=== PATIENT | female | born 1990 | race Caucasian/White ===

== ENCOUNTER 2019-04-08 11:33 | Inpatient (IN) | payer BC ==
[2019-04-08] VITALS (10 sets, daily range): BP systolic 97–116; BP diastolic 51–68
[~2019-04-08] VITALS: Ht 180.3 cm; Wt 81.2 kg
--- NOTE | 2019-04-08 12:19 | PDOC1 ---
History and Physical Date of Admission Date of Admission DATE: 04/08/19 TIME: 12:18 Identification/Chief Complaint Chief Complaint SEEN IN [facility] ER WITH RLQ ACUTE PAIN, DILATED APPENDIX ON CT [facility] Family History Family History: High Cholestrol Family History: Parent Social History Smoke: No ALCOHOL: none Drugs: None Allergies Allergies: Coded Allergies: No Known Drug Allergies (Unverified , 04/08/19) ROS General: YES: Chills; No: Night Sweats, Fatigue, Malaise, Appetite, Other PSYCHOLOGICAL ROS: No: Anxiety, Behavioral Disorder, Concentration difficultie, Decreased libido, Depression, Disorientation, Hallucinations, Hostility, Irritablity, Memory difficulties, Mood Swings, Obsessive thoughts, Physical abuse, Sexual abuse, Sleep disturbances, Suicidal ideation, Other Eyes: No Blurry vision, No Decreased vision, No Double vision, No Dry eyes, No Excessive tearing, No Eye Pain, No Itchy Eyes, No Loss of vision, No Photophobia, No Scotomata, No Uses contacts, No Uses glasses, No Other HEENT: No: Heacaches, Visual Changes, Hearing change, Nasal congestion, Nasal discharge, Oral lesions, Sinus pain, Sore Throat, Epistaxis, Sneezing, Snoring, Tinnitus, Vertigo, Vocal changes, Other ALLERGY AND IMMUNOLOGY: No: Hives, Insect Bite Sensitivity, Itchy/Watery Eyes, Nasal Congestion, Post Nasal Drip, Seasonal Allergies, Other Hematological and Lymphatic: No: Bleeding Problems, Blood Clots, Blood Transfusions, Brusing, Night Sweats, Pallor, Swollen Lymph Nodes, Other ENDOCRINE: No: Breast Changes, Galactorrhea, Hair Pattern Changes, Hot Flashes, Malaise/lethargy, Mood Swings, Palpitations, Polydipsia/polyuria, Skin Changes, Temperature Intolerance, Unexpected Weight Changes, Other Breast: No New/Changing Breast Lumps, No Nipple changes, No Nipple discharge, No Other Respiratory: No: Cough, Hemoptysis, Orthopnea, Pleuritic Pain, Shortness of breath, SOB with excertion, Sputum Changes, Stridor, Tachypnea, Wheezing, Other Cardiovascular: No Chest Pain, No Palpitations, No Orthopnea, No Paroxysmal Noc. Dyspnea, No Edema, No Lt Headedness, No Other Gastrointestinal: Yes Abdominal Pain, Yes Other (rlq discomfort x 18 hrs) Genitourinary: No Dysuria, No Frequency, No Incontinence, No Hematuria, No Ret ention, No Discharge, No Urgency, No Pain, No Flank Pain, No Other, No , No , No , No , No , No , No Musculoskeletal: No Gait Disturbance, No Joint Pain, No Joint Stiffness, No Joint Swelling, No Muscle Pain, No Muscular Weakness, No Pain In:, No Swelling In:, No Other Neurological: No Behavorial Changes, No Bowel/Bladder ControlChng, No Confusion, No Dizziness, No Gait Disturbance, No Headaches, No Impaired Coord/balance, No Memory Loss, No Numbness/Tingling, No Seizures, No Speech Problems, No Tremors, No Visual Changes, No Weakness, No Other Skin: No Dry Skin, No Eczema, No Hair Changes, No Lumps, No Mole Changes, No Mottling, No Nail Changes, No Pruritus, No Rash, No Skin Lesion Changes, No Other, No Acne Physical Exam General: Alert, Oriented X3, Cooperative, No acute distress, mild distress HEENT: Atraumatic, PERRLA Lungs: Clear to auscultation, Normal air movement Heart: S1S2, RRR, no thrills, no gallops, no murmurs, no jug vein distention Breasts: Not examined Abdomen: Normal bowel sounds, No hepatosplenomegaly, Other (rlq tender) Rectal Exam: not examined PELVIC: Examination not indicated Extremities: No cyanosis Neuro: Normal speech, Strength at 5/5 X4 ext, Sensation intact, Cranial nerves 3-12 NL Psych/Mental Status: Mental status NL, Mood NL VTE Prophylaxis Ordered VTE Prophylaxis Devices: Yes VTE Pharmacological Prophylaxi: Yes Assessment/Plan Assessment/Plan impression 1. acute RLQ PAIN suspect acute appendicitis 2. recent PLAN ADMIT NPO CONSULT DR DONALD IV FLUIDS 58 MIN PT EXAM, CHART REVIEW, > 50% OF TIME SPENT WITH EXAM, CHART REVIEW, PT CARE COORDINATION FRANCOIS ERICKSON MD Apr 08, 2019 12:18
[2019-04-08] MEDS ORDERED: BUPIVACAINE-EPI 0.5%-1:200000 MPF 30 ML VIAL. INJ ONE (12:30)
[2019-04-08] MEDS ORDERED: IV RINGERS,LACTATED 1000ML 1,000 ML IV SCH (12:47)
[2019-04-08] MEDS ORDERED: ONDANSETRON PF 4 MG/2 ML VIAL. IV PRN ×2 (13:00→21:15)
[2019-04-08] MEDS ORDERED: MORPHINE SULFATE 2 MG/ML VIAL. IV PRN (13:00)
[2019-04-08] MEDS ORDERED: fentaNYL PF VIAL 100 MCG/2 ML VIAL IV PRN ×3 (13:00→19:15)
[2019-04-08] MEDS ORDERED: HYDROmorphone 2 MG/ML VIAL IV PRN (13:00)
[2019-04-08] MEDS ORDERED: PROCHLORPERAZINE 10 MG/2 ML VIAL. IV PRN (13:00)
--- NOTE | 2019-04-08 13:43 | PDOC2 ---
CONSULT Date of Consult Date of Consult DATE: 04/08/19 TIME: 13:40 History of Present Illness Reason for Visit: The patient is a 28-year-old female who noticed abdominal pain that started yesterday. The pain was initially in the lower midabdomen but earlier this morning localized to the right lower quadrant. She denies any associated nausea or vomiting but has felt "feverish". She reported to the emergency department at [facility] and her evaluation was suggestive of possible appendicitis. She was transferred for definitive care. Past Medical History Past Medical History Denies Past Surgical History Past Surgical History Family History Family History: High Cholestrol Social History Social History: Parent No ALCOHOL: none Drugs: None Current Medications Current Medications Current Medications Bupivacaine HCl/ Epinephrine Bitart (Sensorcain-Epi 0.5%-1:934702 Mpf) 30 ml 1X ONCE INJ ; Start 04/08/19 at 12:30; Stop 04/08/19 at 12:31; Status DC Ondansetron HCl (Zofran) 4 mg PRN Q6HRS PRN IV NAUSEA/VOMITING; Start 04/08/19 at 13:00; Stop 04/08/19 at 20:00 Fentanyl Citrate (Fentanyl 2ml Vial) 25 mcg PRN Q5MIN PRN IV MILD PAIN 1-3; Start 04/08/19 at 13:00; Stop 04/08/19 at 20:00 Fentanyl Citrate (Fentanyl 2ml Vial) 50 mcg PRN Q5MIN PRN IV MODERATE TO SEVERE PAIN; Start 04/08/19 at 13:00; Stop 04/08/19 at 20:00 Morphine Sulfate (Morphine Sulfate) 1 mg PRN Q10MIN PRN IV SEVERE PAIN 7-10; Start 04/08/19 at 13:00; Stop 04/08/19 at 20:00 Ringer's Solution 1,000 ml @ 30 mls/hr Q24H IV ; Start 04/08/19 at 12:47; Stop 04/09/19 at 00:46 Hydromorphone HCl (Dilaudid) 0.5 mg PRN Q10MIN PRN IV SEV PAIN, Second choice; Start 04/08/19 at 13:00; Stop 04/08/19 at 20:00 Prochlorperazine Edisylate (Compazine) 5 mg PACU PRN PRN IV NAUSEA, MRX1; Start 04/08/19 at 13:00; Stop 04/08/19 at 20:00 Allergies Allergies: Coded Allergies: No Known Drug Allergies (Unverified , 04/08/19) ROS General: No: Chills, Night Sweats, Fatigue, Malaise, Appetite, Other PSYCHOLOGICAL ROS: No: Anxiety, Behavioral Disorder, Concentration difficultie, Decreased libido, Depression, Disorientation, Hallucinations, Hostility, Irritablity, Memory difficulties, Mood Swings, Obsessive thoughts, Physical abuse, Sexual abuse, Sleep disturbances, Suicidal ideation, Other Eyes: No Blurry vision, No Decreased vision, No Double vision, No Dry eyes, No Excessive tearing, No Eye Pain, No Itchy Eyes, No Loss of vision, No Photophobia, No Scotomata, No Uses contacts, No Uses glasses, No Other HEENT: No: Heacaches, Visual Changes, Hearing change, Nasal congestion, Nasal discharge, Oral lesions, Sinus pain, Sore Throat, Epistaxis, Sneezing, Snoring, Tinnitus, Vertigo, Vocal changes, Other ALLERGY AND IMMUNOLOGY: No: Hives, Insect Bite Sensitivity, Itchy/Watery Eyes, Nasal Congestion, Post Nasal Drip, Seasonal Allergies, Other Hematological and Lymphatic: No: Bleeding Problems, Blood Clots, Blood Transfusions, Brusing, Night Sweats, Pallor, Swollen Lymph Nodes, Other Respiratory: No: Cough, Hemoptysis, Orthopnea, Pleuritic Pain, Shortness of breath, SOB with excertion, Sputum Changes, Stridor, Tachypnea, Wheezing, Other Cardiovascular: No Chest Pain, No Palpitations, No Orthopnea, No Paroxysmal Noc. Dyspnea, No Edema, No Lt Headedness, No Other Gastrointestinal: Yes Abdominal Pain Genitourinary: No Dysuria, No Frequency, No Incontinence, No Hematuria, No Retention, No Discharge, No Urgency, No Pain, No Flank Pain, No Other, No , No , No , No , No , No , No Musculoskeletal: No Gait Disturbance, No Joint Pain, No Joint Stiffness, No Joint Swelling, No Muscle Pain, No Muscular Weakness, No Pain In:, No Swelling In:, No Other Neurological: No Behavorial Changes, No Bowel/Bladder ControlChng, No Confusion, No Dizziness, No Gait Disturbance, No Headaches, No Impaired Coord/balance, No Memory Loss, No Numbness/Tingling, No Seizures, No Speech Problems, No Tremors, No Visual Changes, No Weakness, No Other Skin: No Dry Skin, No Eczema, No Hair Changes, No Lumps, No Mole Changes, No Mottling, No Nail Changes, No Pruritus, No Rash, No Skin Lesion Changes, No Other, No Acne Physical Exam General: Alert, Oriented X3, Cooperative HEENT: Atraumatic Lungs: Clear to auscultation Heart: Regular rate Abdomen: Soft (tender in the RLQ) Extremities: No clubbing, No cyanosis Skin: No rashes Neuro: Normal speech, Strength at 5/5 X4 ext Psych/Mental Status: Mental status NL Vitals VITALS Vital Signs Date Time Temp Pulse Resp B/P (MAP) Pulse Ox O2 Delivery O2 Flow Rate FiO2 04/08/19 12:05 Room Air Assessment/Plan Assessment/Plan RLQ pain, possible early appendicitis; recommend exploratory laparoscopy, likely appendectomy. The details and risks of surgery were discussed with the patient. She understands and would like to proceed. ISSA LLANOS MD Apr 08, 2019 13:43
[2019-04-08] MEDS ORDERED: PIPERACILLIN/TAZOBACTAM 3.375 GM in IV NORMAL SALINE 50ML 50 ML IV ONE (14:00)
[2019-04-08] MEDS ORDERED: fentaNYL PF VIAL 100 MCG/2 ML VIAL ONE (14:05)
[2019-04-08] MEDS ORDERED: KETOROLAC 30 MG/ML VIAL. ONE (14:05)
[2019-04-08] MEDS ORDERED: NEOSTIGMINE METHYLSULFATE 5 MG/5 ML SYRINGE. ONE (14:05)
[2019-04-08] MEDS ORDERED: DEXAMETHASONE SOD PHOS 20 MG/5 ML VIAL. ONE (14:05)
[2019-04-08] MEDS ORDERED: PROPOFOL 20 ML IV ONE (14:05)
[2019-04-08] MEDS ORDERED: LIDOCAINE 2% PF 5 ML VIAL. ONE (14:05)
[2019-04-08] MEDS ORDERED: ROCURONIUM 100 MG/10 ML VIAL. ONE (14:05)
[2019-04-08] MEDS ORDERED: GLYCOPYRROLATE 1 MG/5 ML VIAL. ONE (14:05)
[2019-04-08] MEDS ORDERED: ONDANSETRON PF 4 MG/2 ML VIAL. ONE (14:05)
[2019-04-08 14:16] LABS: ALBUMIN 3.9 g/dL (3.4-5.0); ALBUMIN/GLOBULIN RATIO 1.1 (1.0-1.7); CALCIUM 9.5 mg/dL (8.5-10.1); CREATININE 0.8 mg/dL (0.6-1.0); GFR 84.2; POTASSIUM 3.9 mmol/L (3.5-5.1); TOTAL BILIRUBIN 0.6 mg/dL (0.2-1.0); TOTAL PROTEIN 7.5 g/dL (6.4-8.2)
[2019-04-08 15:14] LABS: BASO % 0 % (0-3); EOS % 0 % (0-3); HEMATOCRIT 40.9 % (36.0-47.0); LYMPH # 1.7 x10^3/uL (1.0-4.8); LYMPH % 16 % (24-48); MEAN CORPUSCULAR HEMOGLOBIN 30 pg (25-35); MEAN CORPUSCULAR HGB CONC 34 g/dL (31-37); MEAN CORPUSCULAR VOLUME 87 fL (79-100); MONO # 0.6 x10^3/uL (0.0-1.1); MONO % 5 % (0-9); NEUT # 8.6 x10^3/uL (1.8-7.7); NEUT % 79 % (31-73); PLATELET COUNT 256 x10^3/uL (140-400); RED BLOOD COUNT 4.72 x10^6/uL (3.50-5.40); RED CELL DISTRIBUTION WIDTH 12.9 % (11.5-14.5); WHITE BLOOD COUNT 10.9 x10^3/uL (4.0-11.0)
[2019-04-08] MEDS ORDERED: SEVOFLURANE 61 TO 120 MINUTES. IH ONE (16:27)
--- NOTE | 2019-04-08 17:09 | PDOC4 ---
Operative Note Operative Note Preoperative Diagnosis: Acute Appendicitis Postoperative Diagnosis: Same Procedure: Laparoscopic appendectomy Surgeon: Primitivo Anesthesia: Gen. EBL: 10 mL Specimen: Appendix to pathology Drains: None Complications: None Indication: The patient is a 28-year-old female who reported to the emergency department with abdominal pain. The evaluation is consistent with acute appendicitis. The patient was offered surgical treatment with a laparoscopic appendectomy. The risks of surgery were discussed which include bleeding, infection, visceral injury, pain, anesthetic risk, potential need for additional surgery or procedure. The patient understands and would like to proceed. Description: The patient was taken to the operating room and placed supine on the operating table. Gen. anesthesia was performed. The abdomen was prepped with ChloraPrep and draped in a standard surgical manner. A supraumbilical incision was made through which a veress needle was inserted and a pneumoperitoneum was created. A visualized 5 mm trocar was inserted and the laparoscope was intr oduced. In the left lower quadrant a 5 mm trocar was inserted. In the suprapubic region a 12 mm trocar was inserted. The appendix was identified and appeared inflamed consistent with early acute appendicitis. There was no clear evidence of perforation or periappendiceal abscess. The mesoappendix was bluntly from the appendix. The mesoappendix was controlled using several clips and it was divided. The appendix was then amputated off the cecum using an Endo JO 45 stapling device. The appendix was then placed in an endoscopic bag and extracted at the suprapubic incision site. The fascia there was closed with 0 Vicryl and infiltrated with half percent Marcaine with epinephrine. The RLQ was visualized and the staple line appeared well intact and hemostasis was good. No other abnormalities were identified grossly. The remaining ports were removed and the pneumoperitoneum was relieved. The skin at all incision sites was closed with 4-0 Monocryl. Steri-Strips and dressings were applied. The patient tole rated the procedure well and was sent to the recovery room in stable condition. At the end of the case all counts were correct. ISSA LLANOS MD Apr 08, 2019 17:09
[2019-04-08] MEDS ORDERED: HYDROcodone/APAP 5/325MG 1 TAB TABLET PO PRN ×2 (17:15)
[2019-04-09 03:00] VITALS: BP 97/53
[2019-04-09 07:00] VITALS: BP 104/55
[2019-04-09 08:38] LABS: BASO % 0 % (0-3); EOS % 0 % (0-3); HEMATOCRIT 39.2 % (36.0-47.0); HEMOGLOBIN 13.3 g/dL (12.0-15.5); LYMPH # 0.8 x10^3/uL (1.0-4.8); LYMPH % 10 % (24-48); MEAN CORPUSCULAR HEMOGLOBIN 30 pg (25-35); MEAN CORPUSCULAR HGB CONC 34 g/dL (31-37); MEAN CORPUSCULAR VOLUME 88 fL (79-100); MONO # 0.4 x10^3/uL (0.0-1.1); MONO % 5 % (0-9); NEUT # 7.4 x10^3/uL (1.8-7.7); NEUT % 85 % (31-73); PLATELET COUNT 232 x10^3/uL (140-400); RED BLOOD COUNT 4.46 x10^6/uL (3.50-5.40); RED CELL DISTRIBUTION WIDTH 13.1 % (11.5-14.5); WHITE BLOOD COUNT 8.7 x10^3/uL (4.0-11.0)
[2019-04-09 08:43] LABS: CALCIUM 8.6 mg/dL (8.5-10.1); CREATININE 0.8 mg/dL (0.6-1.0); GFR 84.2
[2019-04-09] MEDS ORDERED: ACETAMINOPHEN 500 MG TABLET PO PRN (09:00)
--- NOTE | 2019-04-09 09:32 | PDOC3 ---
Discharge Summary Visit Information Date of Admission: Apr 08, 2019 Date of Discharge: Apr 09, 2019 Admitting Diagnosis Comment: appendicitis Brief Hospital Course Allergies Allergies Coded Allergies Type Severity Reaction Last Updated Verified No Known Drug Allergies 04/08/19 No Vital Signs Vital Signs Date Time Temp Pulse Resp B/P (MAP) Pulse Ox O2 Delivery O2 Flow Rate FiO2 04/09/19 03:00 98.1 59 18 97/53 (68) 96 Room Air 98.1 04/09/19 02:05 12.0 Lab Results Laboratory Tests Test 04/08/19 13:37 04/09/19 07:46 White Blood Count 10.9 x10^3/uL (4.0-11.0) 8.7 x10^3/uL (4.0-11.0) Red Blood Count 4.72 x10^6/uL (3.50-5.40) 4.46 x10^6/uL (3.50-5.40) Hemoglobin 14.0 g/dL (12.0-15.5) 13.3 g/dL (12.0-15.5) Hematocrit 40.9 % (36.0-47.0) 39.2 % (36.0-47.0) Mean Corpuscular Volume 87 fL (79-100) 88 fL (79-100) Mean Corpuscular Hemoglobin 30 pg (25-35) 30 pg (25-35) Mean Corpuscular Hemoglobin Concent 34 g/dL (31-37) 34 g/dL (31-37) Red Cell Distribution Width 12.9 % (11.5-14.5) 13.1 % (11.5-14.5) Platelet Count 256 x10^3/uL (140-400) 232 x10^3/uL (140-400) Neutrophils (%) (Auto) 79 % (31-73) 85 % (31-73) Lymphocytes (%) (Auto) 16 % (24-48) 10 % (24-48) Monocytes (%) (Auto) 5 % (0-9) 5 % (0-9) Eosinophils (%) (Auto) 0 % (0-3) 0 % (0-3) Basophils (%) (Auto) 0 % (0-3) 0 % (0-3) Neutrophils # (Auto) 8.6 x10^3/uL (1.8-7.7) 7.4 x10^3/uL (1.8-7.7) Lymphocytes # (Auto) 1.7 x10^3/uL (1.0-4.8) 0.8 x10^3/uL (1.0-4.8) Monocytes # (Auto) 0.6 x10^3/uL (0.0-1.1) 0.4 x10^3/uL (0.0-1.1) Eosinophils # (Auto) 0.0 x10^3/uL (0.0-0.7) 0.0 x10^3/uL (0.0-0.7) Basophils # (Auto) 0.0 x10^3/uL (0.0-0.2) 0.0 x10^3/uL (0.0-0.2) Sodium Level 144 mmol/L (136-145) 142 mmol/L (136-145) Potassium Level 3.9 mmol/L (3.5-5.1) 4.0 mmol/L (3.5-5.1) Chloride Level 106 mmol/L (98-107) 105 mmol/L (98-107) Carbon Dioxide Level 28 mmol/L (21-32) 26 mmol/L (21-32) Anion Gap 10 (6-14) 11 (6-14) Blood Urea Nitrogen 9 mg/dL (7-20) 13 mg/dL (7-20) Creatinine 0.8 mg/dL (0.6-1.0) 0.8 mg/dL (0.6-1.0) Estimated GFR (Cockcroft-Gault) 84.2 84.2 BUN/Creatinine Ratio 11 (6-20) Glucose Level 89 mg/dL (70-99) 90 mg/dL (70-99) Calcium Level 9.5 mg/dL (8.5-10.1) 8.6 mg/dL (8.5-10.1) Total Bilirubin 0.6 mg/dL (0.2-1.0) Aspartate Amino Transf (AST/SGOT) 16 U/L (15-37) Alanine Aminotransferase (ALT/SGPT) 17 U/L (14-59) Alkaline Phosphatase 53 U/L (46-116) Total Protein 7.5 g/dL (6.4-8.2) Albumin 3.9 g/dL (3.4-5.0) Albumin/Globulin Ratio 1.1 (1.0-1.7) Laboratory Tests Test 04/08/19 13:37 04/09/19 07:46 White Blood Count 10.9 x10^3/uL (4.0-11.0) 8.7 x10^3/uL (4.0-11.0) Red Blood Count 4.72 x10^6/uL (3.50-5.40) 4.46 x10^6/uL (3.50-5.40) Hemoglobin 14.0 g/dL (12.0-15.5) 13.3 g/dL (12.0-15.5) Hematocrit 40.9 % (36.0-47.0) 39.2 % (36.0-47.0) Mean Corpuscular Volume 87 fL (79-100) 88 fL (79-100) Mean Corpuscular Hemoglobin 30 pg (25-35) 30 pg (25-35) Mean Corpuscular Hemoglobin Concent 34 g/dL (31-37) 34 g/dL (31-37) Red Cell Distribution Width 12.9 % (11.5-14.5) 13.1 % (11.5-14.5) Platelet Count 256 x10^3/uL (140-400) 232 x10^3/uL (140-400) Neutrophils (%) (Auto) 79 % (31-73) 85 % (31-73) Lymphocytes (%) (Auto) 16 % (24-48) 10 % (24-48) Monocytes (%) (Auto) 5 % (0-9) 5 % (0-9) Eosinophils (%) (Auto) 0 % (0-3) 0 % (0-3) Basophils (%) (Auto) 0 % (0-3) 0 % (0-3) Neutrophils # (Auto) 8.6 x10^3/uL (1.8-7.7) 7.4 x10^3/uL (1.8-7.7) Lymphocytes # (Auto) 1.7 x10^3/uL (1.0-4.8) 0.8 x10^3/uL (1.0-4.8) Monocytes # (Auto) 0.6 x10^3/uL (0.0-1.1) 0.4 x10^3/uL (0.0-1.1) Eosinophils # (Auto) 0.0 x10^3/uL (0.0-0.7) 0.0 x10^3/uL (0.0-0.7) Basophils # (Auto) 0.0 x10^3/uL (0.0-0.2) 0.0 x10^3/uL (0.0-0.2) Sodium Level 144 mmol/L (136-145) 142 mmol/L (136-145) Potassium Level 3.9 mmol/L (3.5-5.1) 4.0 mmol/L (3.5-5.1) Chloride Level 106 mmol/L (98-107) 105 mmol/L (98-107) Carbon Dioxide Level 28 mmol/L (21-32) 26 mmol/L (21-32) Anion Gap 10 (6-14) 11 (6-14) Blood Urea Nitrogen 9 mg/dL (7-20) 13 mg/dL (7-20) Creatinine 0.8 mg/dL (0.6-1.0) 0.8 mg/dL (0.6-1.0) Estimated GFR (Cockcroft-Gault) 84.2 84.2 BUN/Creatinine Ratio 11 (6-20) Glucose Level 89 mg/dL (70-99) 90 mg/dL (70-99) Calcium Level 9.5 mg/dL (8.5-10.1) 8.6 mg/dL (8.5-10.1) Total Bilirubin 0.6 mg/dL (0.2-1.0) Aspartate Amino Transf (AST/SGOT) 16 U/L (15-37) Alanine Aminotransferase (ALT/SGPT) 17 U/L (14-59) Alkaline Phosphatase 53 U/L (46-116) Total Protein 7.5 g/dL (6.4-8.2) Albumin 3.9 g/dL (3.4-5.0) Albumin/Globulin Ratio 1.1 (1.0-1.7) Brief Hospital Course Ms. Warren is a 28 old female, admitted for appy, underwent lap appy, TOlerated proc, HOme today naproxen BID prn ff up GS 4 weeks post sx Discharge Information Condition at Discharge: Improved, Stable Follow Up: Weeks (4 weeks GS post op) Disposition/Orders: D/C to Home LUIS ROSAS MD Apr 09, 2019 09:32
[2019-04-09] MEDS ORDERED: NAPR-514 PO (10:49)
[2019-04-09 11:00] VITALS: BP 98/48
--- NOTE | 2019-04-09 11:06 | NUR ---
SS following for discharge planning. SS reviewed pt chart. Pt is from home with spouse and is currently on room air. No discharge needs noted at this time. Discharge order on the chart for home with self care.
--- NOTE | 2019-04-09 13:28 | PDOC ---
SURGICAL PROGRESS NOTE Subjective tolerating diet pain managed urinating feels well Vital Signs Vital Signs Date Time Temp Pulse Resp B/P (MAP) Pulse Ox O2 Delivery O2 Flow Rate FiO2 04/09/19 11:00 98.3 62 18 98/48 (65) 97 Room Air 98.3 04/09/19 02:05 12.0 I&O Intake and Output 04/09/19 07:00 Intake Total 1800 ml Output Total 25 ml Balance 1775 ml Intake IV Total 1800 ml Output Estimated Blood Loss 25 ml # Voids 1 General: Alert, Oriented X3, Cooperative, No acute distress Abdomen: Soft, Other (ND, lap dressings dry) Labs Laboratory Tests Test 04/08/19 13:37 04/09/19 07:46 White Blood Count 10.9 x10^3/uL (4.0-11.0) 8.7 x10^3/uL (4.0-11.0) Red Blood Count 4.72 x10^6/uL (3.50-5.40) 4.46 x10^6/uL (3.50-5.40) Hemoglobin 14.0 g/dL (12.0-15.5) 13.3 g/dL (12.0-15.5) Hematocrit 40.9 % (36.0-47.0) 39.2 % (36.0-47.0) Mean Corpuscular Volume 87 fL (79-100) 88 fL (79-100) Mean Corpuscular Hemoglobin 30 pg (25-35) 30 pg (25-35) Mean Corpuscular Hemoglobin Concent 34 g/dL (31-37) 34 g/dL (31-37) Red Cell Distribution Width 12.9 % (11.5-14.5) 13.1 % (11.5-14.5) Platelet Count 256 x10^3/uL (140-400) 232 x10^3/uL (140-400) Neutrophils (%) (Auto) 79 % (31-73) 85 % (31-73) Lymphocytes (%) (Auto) 16 % (24-48) 10 % (24-48) Monocytes (%) (Auto) 5 % (0-9) 5 % (0-9) Eosinophils (%) (Auto) 0 % (0-3) 0 % (0-3) Basophils (%) (Auto) 0 % (0-3) 0 % (0-3) Neutrophils # (Auto) 8.6 x10^3/uL (1.8-7.7) 7.4 x10^3/uL (1.8-7.7) Lymphocytes # (Auto) 1.7 x10^3/uL (1.0-4.8) 0.8 x10^3/uL (1.0-4.8) Monocytes # (Auto) 0.6 x10^3/uL (0.0-1.1) 0.4 x10^3/uL (0.0-1.1) Eosinophils # (Auto) 0.0 x10^3/uL (0.0-0.7) 0.0 x10^3/uL (0.0-0.7) Basophils # (Auto) 0.0 x10^3/uL (0.0-0.2) 0.0 x10^3/uL (0.0-0.2) Sodium Level 144 mmol/L (136-145) 142 mmol/L (136-145) Potassium Level 3.9 mmol/L (3.5-5.1) 4.0 mmol/L (3.5-5.1) Chloride Level 106 mmol/L (98-107) 105 mmol/L (98-107) Carbon Dioxide Level 28 mmol/L (21-32) 26 mmol/L (21-32) Anion Gap 10 (6-14) 11 (6-14) Blood Urea Nitrogen 9 mg/dL (7-20) 13 mg/dL (7-20) Creatinine 0.8 mg/dL (0.6-1.0) 0.8 mg/dL (0.6-1.0) Estimated GFR (Cockcroft-Gault) 84.2 84.2 BUN/Creatinine Ratio 11 (6-20) Glucose Level 89 mg/dL (70-99) 90 mg/dL (70-99) Calcium Level 9.5 mg/dL (8.5-10.1) 8.6 mg/dL (8.5-10.1) Total Bilirubin 0.6 mg/dL (0.2-1.0) Aspartate Amino Transf (AST/SGOT) 16 U/L (15-37) Alanine Aminotransferase (ALT/SGPT) 17 U/L (14-59) Alkaline Phosphatase 53 U/L (46-116) Total Protein 7.5 g/dL (6.4-8.2) Albumin 3.9 g/dL (3.4-5.0) Albumin/Globulin Ratio 1.1 (1.0-1.7) Laboratory Tests Test 04/08/19 13:37 04/09/19 07:46 White Blood Count 10.9 x10^3/uL (4.0-11.0) 8.7 x10^3/uL (4.0-11.0) Red Blood Count 4.72 x10^6/uL (3.50-5.40) 4.46 x10^6/uL (3.50-5.40) Hemoglobin 14.0 g/dL (12.0-15.5) 13.3 g/dL (12.0-15.5) Hematocrit 40.9 % (36.0-47.0) 39.2 % (36.0-47.0) Mean Corpuscular Volume 87 fL (79-100) 88 fL (79-100) Mean Corpuscular Hemoglobin 30 pg (25-35) 30 pg (25-35) Mean Corpuscular Hemoglobin Concent 34 g/dL (31-37) 34 g/dL (31-37) Red Cell Distribution Width 12.9 % (11.5-14.5) 13.1 % (11.5-14.5) Platelet Count 256 x10^3/uL (140-400) 232 x10^3/uL (140-400) Neutrophils (%) (Auto) 79 % (31-73) 85 % (31-73) Lymphocytes (%) (Auto) 16 % (24-48) 10 % (24-48) Monocytes (%) (Auto) 5 % (0-9) 5 % (0-9) Eosinophils (%) (Auto) 0 % (0-3) 0 % (0-3) Basophils (%) (Auto) 0 % (0-3) 0 % (0-3) Neutrophils # (Auto) 8.6 x10^3/uL (1.8-7.7) 7.4 x10^3/uL (1.8-7.7) Lymphocytes # (Auto) 1.7 x10^3/uL (1.0-4.8) 0.8 x10^3/uL (1.0-4.8) Monocytes # (Auto) 0.6 x10^3/uL (0.0-1.1) 0.4 x10^3/uL (0.0-1.1) Eosinophils # (Auto) 0.0 x10^3/uL (0.0-0.7) 0.0 x10^3/uL (0.0-0.7) Basophils # (Auto) 0.0 x10^3/uL (0.0-0.2) 0.0 x10^3/uL (0.0-0.2) Sodium Level 144 mmol/L (136-145) 142 mmol/L (136-145) Potassium Level 3.9 mmol/L (3.5-5.1) 4.0 mmol/L (3.5-5.1) Chloride Level 106 mmol/L (98-107) 105 mmol/L (98-107) Carbon Dioxide Level 28 mmol/L (21-32) 26 mmol/L (21-32) Anion Gap 10 (6-14) 11 (6-14) Blood Urea Nitrogen 9 mg/dL (7-20) 13 mg/dL (7-20) Creatinine 0.8 mg/dL (0.6-1.0) 0.8 mg/dL (0.6-1.0) Estimated GFR (Cockcroft-Gault) 84.2 84.2 BUN/Creatinine Ratio 11 (6-20) Glucose Level 89 mg/dL (70-99) 90 mg/dL (70-99) Calcium Level 9.5 mg/dL (8.5-10.1) 8.6 mg/dL (8.5-10.1) Total Bilirubin 0.6 mg/dL (0.2-1.0) Aspartate Amino Transf (AST/SGOT) 16 U/L (15-37) Alanine Aminotransferase (ALT/SGPT) 17 U/L (14-59) Alkaline Phosphatase 53 U/L (46-116) Total Protein 7.5 g/dL (6.4-8.2) Albumin 3.9 g/dL (3.4-5.0) Albumin/Globulin Ratio 1.1 (1.0-1.7) Assessment/Plan s/p lap appy ok to [place] home JOANIE GUAJARDO APRN Apr 09, 2019 13:28
--- NOTE | 2019-04-09 14:49 | NUR ---
Discharge teaching provided written and verbal to pt,understanding verbalized. Dismissed to home with all belongings accompanied by her . Transported to exit per w/c at 1400.
--- NOTE | 2019-04-13 09:06 | PATHOLOGY ---
[facility] Accession Number: [id number] . 01 Material submitted: . appendix - APPENDIX . 01 Clinical history: . Acute appendicitis . 02 Diagnosis: Appendix, appendectomy: - Acute appendicitis. ([facility]/; 04/10/19) [facility] 04/10/2019 1551 Local . 02 Electronically signed: . Alcides Damico MD, Pathologist NPI- [id number] . 01 Gross description: . Received in formalin, labeled "Alka Warren, appendix", is an intact appendix (7.0 cm length x 0.6 cm diameter) and attached mesoappendix (7.5 x 2.2 x 0.8 cm). The proximal resection margin is closed by a linear staple line 1.7 cm with an average 0.2 cm width. The staple line and the adjacent serosa is inked black. The serosa is potter-white and with no perforation. The lumen minimally dilated and filled with hemorrhagic soft material and no discrete fecalith. The wall has an average thickness of 0.1 cm. The maria victoria-appendiceal soft tissue has a yellow cut surface. Representatively submitted in A1. ([facility]; 04/09/2019) [facility] 04/10/2019 1549 Local . 02 Pathologist provided ICD-10: K35.80 . 02 CPT . 550603 Specimen Comment: A courtesy copy of this report has been sent to Specimen Comment: [phone], , . Specimen Comment: Report sent to ,DR ERICKSON / DR OLVERA Performed at: [address] [place] [address] [address] [facility] [address], [place] [id number] MD Tenzin Clark MD Phone: [phone] Performed at: [address] [id number] MD Harman Cespedes MD Phone: [phone]
== END 2019-04-09 14:00 | disposition home or self-care (01) | DRG 343 ==
LOC: 4 NORTH 11:48
PROVIDERS: ADMIT Family Medicine; ATTEND Family Medicine
PROC: 0DTJ4ZZ Resection of Appendix, Percutaneous Endoscopic Approach (ICD-10-PCS; principal; 2019-04-08 13:45)
DX: K35.80 Unspecified acute appendicitis (principal); Z79.899 Other long term (current) drug therapy
CPT/HCPCS: 36415; 80048; 80053; 85025; A7015; J0780; J1100; J1885; J2001; J2405; J2704; J2710; J3010; J3490; J7030; J7120; G0378